=== PATIENT | male | born 1970 | race Two or more races ===

== ENCOUNTER 2020-04-12 08:44 | Outpatient (CLI) | payer OTHER | END 2020-04-12 08:54 | disposition home or self-care (01) | LOC: RX STUDY 08:44 | PROVIDERS: ATTEND Colon & Rectal Surgery | DX: C20 Malignant neoplasm of rectum (principal); Z93.2 Ileostomy status ==

== ENCOUNTER 2021-11-14 10:23 | Inpatient (IN) | payer OTHER ==
[~2021-11-14] VITALS: Ht 167.6 cm; Wt 84.4 kg
[2021-11-14] MEDS ORDERED: UROXATRAL10 MG PO (12:36)
[2021-11-14] MEDS ORDERED: BETHANECHOL CHL50 MG PO (12:36)
[2021-11-14] MEDS ORDERED: PENTOXIFYLLINE400 MG PO (12:37)
[2021-11-14] MEDS ORDERED: HYDRALAZINE HCL50 MG PO (12:37)
[2021-11-14] MEDS ORDERED: D3 + K2 DOTS 11 EACH PO (12:38)
[2021-11-14] MEDS ORDERED: B12 ACTIVE1000 MCG PO (12:38)
[2021-11-14] MEDS ORDERED: FOLIC ACID0.8 M1 PO (12:38)
[2021-11-14] MEDS ORDERED: LYRICA50 MG PO (12:38)
[2021-11-17] MEDS ORDERED: LATANOPROST2.5 ML (08:53)
[2021-11-17] MEDS ORDERED: CLONAZEPAM0.5 MG (08:53)
[2021-11-17] MEDS ORDERED: GABAPENTIN600 MG (08:54)
[2021-11-17] MEDS ORDERED: FOLIC ACID1 MG (08:54)
[2021-11-17] MEDS ORDERED: GEMFIBROZIL600 MG (08:54)
[2021-11-17] MEDS ORDERED: ZOLPIDEM TARTRA10 MG (08:54)
[2021-11-17] MEDS ORDERED: TRAZODONE HCL50 MG (08:54)
[2021-11-17] MEDS ORDERED: BUPROPION XL300 MG (08:54)
[2021-11-18] MEDS ORDERED: TYLENOL ARTHRI650 MG PO (10:32)
[2021-11-18] MEDS ORDERED: ULTRAM50 MG PO (10:32)
[2021-11-18] MEDS ORDERED: NEURONTIN300 MG PO (10:32)
[2021-11-18] MEDS ORDERED: MIRALAX17 GM PO (10:33)
== END 2021-11-18 17:19 | disposition home or self-care (01) | DRG 354 ==
LOC: SURH 11-16 10:45 → O/R 11-16 12:15 → SURG 11-16 12:15 → SURH 11-16 12:45 → SURG 11-16 18:56
PROVIDERS: ADMIT Surgery; ATTEND Surgery
PROC: 0WUF4JZ Supplement Abdominal Wall with Synthetic Substitute, Percutaneous Endoscopic Approach (ICD-10-PCS; 2021-11-16)
PROC: 0WQF4ZZ Repair Abdominal Wall, Percutaneous Endoscopic Approach (ICD-10-PCS; principal; 2021-11-16 12:45)
DX: K43.2 Incisional hernia without obstruction or gangrene (principal); K42.9 Umbilical hernia without obstruction or gangrene; M50.03 Cervical disc disorder with myelopathy, cervicothoracic region; I10 Essential (primary) hypertension; F32.9 Major depressive disorder, single episode, unspecified; N40.0 Benign prostatic hyperplasia without lower urinary tract symptoms; Z20.822 Contact with and (suspected) exposure to COVID-19